=== PATIENT | female | born 1985 | race Caucasian/White ===

== ENCOUNTER 2021-10-13 15:50 | Outpatient (CLI) | payer OTHER, SELFPAY | END 2021-10-13 23:59 | disposition short-term general hospital (02) | PROVIDERS: Visit Provider Otolaryngology | DX: J32.9 Chronic sinusitis, unspecified (principal) | CPT/HCPCS: 87070; 87205 ==

== ENCOUNTER 2021-11-26 14:15 | Outpatient (CLI) | payer OTHER, SELFPAY | END 2021-11-26 23:59 | disposition home or self-care (01) | LOC: LABSPEC 11-29 09:09 | PROVIDERS: Visit Provider Otolaryngology | DX: J32.8 Other chronic sinusitis (principal) | CPT/HCPCS: 87070; 87205 ==

== ENCOUNTER 2021-11-26 14:52 | Outpatient (CLI) | payer OTHER, SELFPAY | END 2021-11-26 23:59 | disposition home or self-care (01) | PROVIDERS: PCP Family Medicine; Referring Provider Otolaryngology; Visit Provider Otolaryngology | DX: J32.8 Other chronic sinusitis (principal) | CPT/HCPCS: 87070; 87205 ==